=== PATIENT | female | born 1955 | race Caucasian/White ===

== ENCOUNTER 2022-07-11 06:46 | Day surgery (SDC) | payer MEDICARE ==
[~2022-07-11 06:46] MED LIST: ASPI81CH PO; Amaryl1 MG PO; Crestor20 MG PO; DDAVP0.1 M1 PO; LISI5 PO; Percocet 5-3251 EACH PO
[2022-07-12] MEDS ORDERED: Percocet 5-3251 EACH PO (09:06)
[2022-07-12] MEDS ORDERED: Aspir 8181 MG PO (09:06)
== END 2022-07-12 10:15 | disposition home or self-care (01) ==
DX: M17.11 Unilateral primary osteoarthritis, right knee (principal); I10 Essential (primary) hypertension; E78.5 Hyperlipidemia, unspecified; E11.9 Type 2 diabetes mellitus without complications; Z79.899 Other long term (current) drug therapy; E66.9 Obesity, unspecified; Z68.34 Body mass index [BMI] 34.0-34.9, adult